=== PATIENT | female | born 1955 | race African-American/Black ===

== ENCOUNTER 2018-11-05 23:32 | Inpatient (IN) | payer MEDICARE, MEDICAID ==
[~2018-11-05] VITALS: Ht 165.1 cm; Wt 96.0 kg
[~2018-11-05 23:32] MED LIST: AMLO10TA80 MT; LORA2TAB95 MT; TRAZ300T11 PO
[2018-11-06] MEDS ORDERED: MORPHINE SULFATE 2 MG/ML CPJ (NOT FOR IM USE) IV ONE (00:45)
[2018-11-06] MEDS ORDERED: LATANOPROST 0.005% OPHTH DROPS 2.5ML RIGHTEYE SCH (01:00)
[2018-11-06] MEDS ORDERED: ACETAZOLAMIDE SODIUM 500MG/VIAL IV ONE ×2 (01:00→01:45)
[2018-11-06] MEDS ORDERED: TIMOLOL MALEATE 0.5% OPHTH DROPS 5ML RIGHTEYE SCH (01:00)
[2018-11-06 01:09] LABS: CHLORIDE 108 mEq/L (98-107)
[2018-11-06 01:11] LABS: BASOPHILS % 0.8 % (0.0-2.0); EOSINOPHILS % 3.4 % (0.0-5.0); HEMATOCRIT. 40.3 % (36.0-48.0); HEMOGLOBIN. 13.1 g/dL (12.0-16.0); LYMPHOCYTES % 39.5 % (20.0-50.0); MEAN CORPUSCULAR HEMOGLOBIN 30.8 pg (28.0-32.0); MEAN PLATELET VOLUME 7.7 fl (7.4-10.4); MONOCYTES % 9.2 % (2.0-8.0); NEUTROPHILS % 47.1 % (40.0-76.0); PLATELET 236 x1000/uL (130-400); RED BLOOD CELL COUNT 4.24 mill/uL (4.2-5.4); RED CELL DISTRIBUTION WIDTH 12.5 % (11.6-14.6)
[2018-11-06 01:14] LABS: INR 1.1; PROTHROMBIN TIME 10.7 sec (9.1-11.1)
[2018-11-06] MEDS ORDERED: TETRACAINE 0.5% OPHTH DROPS 4ML RIGHTEYE ONE (01:15)
[2018-11-06] MEDS ORDERED: MORPHINE SULFATE 4 MG/ML CPJ (NOT FOR IM USE) IV ONE (01:29)
[2018-11-06] MEDS ORDERED: IBUPROFEN 600MG TABLET PO ONE (01:45)
[2018-11-06] MEDS ORDERED: DEXT 5%/0.45% NACL 500ML 500 ML IV ONE (02:00)
[2018-11-06] MEDS ORDERED: MORPHINE SULFATE 4 MG/ML CPJ (NOT FOR IM USE) IV NR (02:45)
[2018-11-06 03:19] LABS: CLARITY URINE CLOUDY (CLEAR); COLOR URINE YELLOW (YELLOW); KETONES URINE NEGATIVE (NEGATIVE); LEUKOCYTE ESTERASE URINE 3+ (NEGATIVE); NITRITE URINE NEGATIVE (NEGATIVE); OCCULT BLOOD URINE NEGATIVE (NEGATIVE); PH URINE >=9.0 (4.5-8.0); PROTEIN URINE NEGATIVE (NEGATIVE); SPECIFIC GRAVITY URINE 1.011 (1.005-1.030); UROBILINOGEN URINE 0.2 E.U./dL (0.2-1.0)
[2018-11-06 08:00] VITALS: BP 179/93
[2018-11-06] MEDS ORDERED: HYDROMORPHONE HCL/PF 2MG/ML CPJ IV PRN (08:31)
[2018-11-06] MEDS ORDERED: HYDROCODONE/ACETAMINOPHEN 5/325MG TABLET PO PRN (10:30)
[2018-11-06] MEDS ORDERED: ACETAMINOPHEN 325MG TABLET PO PRN (10:30)
[2018-11-06] MEDS ORDERED: LORAZEPAM 0.5MG TABLET PO PRN (10:30)
[2018-11-06] MEDS ORDERED: IPRATROPIUM/ALBUTEROL 0.5-3(2.5)MG/3ML NEB INH PRN (10:30)
[2018-11-06] MEDS ORDERED: DOCUSATE SODIUM 100MG CAPSULE PO PRN (10:30)
[2018-11-06] MEDS ORDERED: CLONIDINE 0.1MG TABLET PO PRN (10:30)
[2018-11-06] MEDS ORDERED: ONDANSETRON HCL 4MG/2ML INJ IV PRN (10:30)
[2018-11-06] MEDS ORDERED: AMLODIPINE 10MG TABLET PO SCH (10:45)
[2018-11-06] MEDS ORDERED: MITOMYCIN 0.2 MG KIT OP ONE (10:45)
[2018-11-06] MEDS ORDERED: FENTANYL CITRATE/PF 50MCG/ML 2ML VIAL ONE ×2 (11:14→11:37)
[2018-11-06] MEDS ORDERED: MIDAZOLAM HCL 2 MG/2 ML VIAL ONE ×3 (11:14→11:57)
[2018-11-06] MEDS ORDERED: SODIUM CHLORIDE 0.9% 10ML VIAL ONE ×2 (11:15→11:21)
[2018-11-06] MEDS ORDERED: CEFAZOLIN SODIUM 1000MG/VIAL ONE (11:15)
[2018-11-06] MEDS ORDERED: PROPOFOL 200MG/20ML VIAL IV ONE (11:15)
[2018-11-06] MEDS ORDERED: LIDOCAINE HCL/PF 1% 10 MG/ML 5ML VIAL ONE (11:15)
[2018-11-06] MEDS ORDERED: DEXAMETHASONE 4MG/ML 1ML VIAL ONE (11:15)
[2018-11-06] MEDS ORDERED: HYDRALAZINE 20MG/ML VIAL ONE (11:21)
[2018-11-06] MEDS ORDERED: PREDNISOLONE ACETATE 1% OPHTH DROPS 1ML BOTHEYE SCH (12:00)
[2018-11-06] MEDS ORDERED: BRIMONIDINE 0.2% OPHTH DROPS 5ML RIGHTEYE SCH (14:00)
[2018-11-06] MEDS ORDERED: PILOCARPINE HCL 2% OPHTH DROPS 15ML RIGHTEYE SCH (14:00)
[2018-11-06 14:05] LABS: *AMPHETAMINES SCREEN URINE NEGATIVE (NEGATIVE); *BARBITURATES SCREEN URINE NEGATIVE (NEGATIVE); *BENZODIAZEPINES SCREEN URINE NEGATIVE (NEGATIVE); *COCAINE SCREEN URINE PRESUMTIVE POSITIVE (NEGATIVE)
[2018-11-06 14:06] LABS: CANNABINOID URINE SCREEN NEGATIVE (NEGATIVE); METHADONE URINE SCREEN NEGATIVE (NEGATIVE); OPIATES URINE SCREEN PRESUMTIVE POSITIVE (NEGATIVE); PHENCYCLIDINE URINE SCREEN NEGATIVE (NEGATIVE)
[2018-11-06] MEDS ORDERED: BALANCED SALT IRRIG SOLN 15ML ONE (16:05)
[2018-11-06] MEDS ORDERED: TETRACAINE 0.5% OPHTH DROPS 4ML ONE (16:05)
[2018-11-06] MEDS ORDERED: ACETYLCHOLINE CHLORIDE INTRAOCULAR SOLUTION 1:100 ELECTROLYTE DILUENT IO ONE (16:05)
[2018-11-06] MEDS ORDERED: NEO/POLYMYX B SULF/DEXAMETH OPHTH OINT 3.5GM ONE (16:05)
[2018-11-06] MEDS ORDERED: CIPROFLOXACIN 0.3% OPHTH SOLN 2.5ML ONE (16:05)
[2018-11-06] MEDS ORDERED: PREDNISOLONE ACETATE 1% OPHTH DROPS 1ML ONE (16:05)
[2018-11-06] MEDS ORDERED: BUPIVACAINE HCL/PF 0.75% (7.5MG/ML) 10ML ONE (16:05)
[2018-11-06] MEDS ORDERED: LIDOCAINE HCL 2%/EPINEPHRINE 1:100,000 20 ML VIAL INFIL ONE (16:05)
[2018-11-06] MEDS ORDERED: TRAZODONE HCL 100MG TABLET PO SCH (21:00)
[2018-11-06] MEDS ORDERED: LATANOPROST 0.005% OPHTH DROPS 2.5ML BOTHEYE SCH (21:00)
== END 2018-11-06 14:40 | disposition left against medical advice (07) | DRG 117 ==
LOC: ER 23:32 → 6EST 11-06 03:13 → EDBEDREQTM 11-06 03:17 → EDBEDREQ 11-06 03:17 → ENRESERV 11-06 03:56
PROVIDERS: ADMIT Internal Medicine; ATTEND Internal Medicine
PROC: 08123Z4 Bypass Right Anterior Chamber to Sclera, Percutaneous Approach (ICD-10-PCS; principal; 2018-11-06)
PROC: 08BC3ZZ Excision of Right Iris, Percutaneous Approach (ICD-10-PCS; 2018-11-06)
DX: H40.211 Acute angle-closure glaucoma, right eye (principal); B19.20 Unspecified viral hepatitis C without hepatic coma; F14.90 Cocaine use, unspecified, uncomplicated; F20.9 Schizophrenia, unspecified; F31.9 Bipolar disorder, unspecified; F41.9 Anxiety disorder, unspecified; H18.20 Unspecified corneal edema; H25.10 Age-related nuclear cataract, unspecified eye; I10 Essential (primary) hypertension; Z53.21 Procedure and treatment not carried out due to patient leaving prior to being seen by health care provider; H57.04 Mydriasis; I16.0 Hypertensive urgency; J45.909 Unspecified asthma, uncomplicated; K74.60 Unspecified cirrhosis of liver; Z79.899 Other long term (current) drug therapy; Z98.51 Tubal ligation status; Z98.84 Bariatric surgery status
CPT/HCPCS: 36415; 71045; 80305; 93005; 96374; 96375; 99285; J0360; J0690; J1100; J1120; J2250; J2270; J2704; J3010; J3490; J9280